=== PATIENT | female | born 2000 | race African-American/Black ===

== ENCOUNTER 2024-03-08 20:22 | Emergency (ER) | payer SELFPAY ==
[~2024-03-08] VITALS: Ht 177.8 cm; Wt 68.2 kg
[2024-03-08 20:28] VITALS: TEMP 98.1
[2024-03-08 21:31] LABS: URINE APPEARANCE CLEAR (CLEAR/HAZY); URINE BLOOD NEGATIVE (NEGATIVE); URINE COLOR Dark Yellow (YELLOW); URINE GLUCOSE NEGATIVE (NEGATIVE); URINE KETONE TRACE (NEGATIVE); URINE NITRATE NEGATIVE (NEGATIVE); URINE PROTEIN(semi-quant) 1+ (NEGATIVE)
[2024-03-08 21:46] LABS: URINE WBC 0-2 /hpf (0-2)
[2024-03-08 21:47] LABS: COLLECTION METHOD CLEAN CATCH; MUCOUS PRESENT (NOT PRESENT); URINE BACTERIA OCCASIONAL /hpf (NONE SEEN); URINE RBC NONE SEEN /hpf (0-2)
[2024-03-08] MEDS ORDERED: metroNIDAZOLE 250 MG TAB PO ONE (22:30)
[2024-03-08] MEDS ORDERED: FLAGYL500 MG PO (22:49)
[2024-03-08 22:53] VITALS: BP 137/90; PULSE 91
== END 2024-03-08 22:53 | disposition home or self-care (01) ==
LOC: COL.ER 20:22
PROVIDERS: Nurse Practitioner Primary Care
DX: N76.0 Acute vaginitis (principal); F17.200 Nicotine dependence, unspecified, uncomplicated